=== PATIENT | female | born 1950 | race Caucasian/White ===

== ENCOUNTER 2018-02-16 11:43 | Emergency (ER) | payer MEDICARE ==
--- NOTE | 2018-02-16 14:03 | RAD ---
LEFT HAND THREE VIEWS: 02/16/2018 HISTORY: The patient reports splinter in hand last week while gardening. Redness and swelling persist in the region of the foreign body. FINDINGS: There is no evidence of a fracture, dislocation, or other osseous abnormality involving the left hand . No radiopaque foreign body is seen. IMPRESSION: 1. No acute osseous abnormality. 2. No radiopaque foreign body is visualized. POS: [facility] [place]
== END 2018-02-16 12:50 | disposition home or self-care (01) ==
LOC: SCSER 11:43
DX: L03.114 Cellulitis of left upper limb (principal)